=== PATIENT | female | born 1960 | race Caucasian/White ===

== ENCOUNTER 2018-06-23 07:20 | Day surgery (SDC) | payer OTHER | END 2018-06-23 11:55 | disposition home or self-care (01) | LOC: AMB-ENDOS 07:20 | DX: R19.8 Other specified symptoms and signs involving the digestive system and abdomen (principal) ==

== ENCOUNTER 2018-10-20 09:30 | Day surgery (SDC) | payer OTHER | END 2018-10-20 15:20 | disposition home or self-care (01) | LOC: AMB-ENDOS 09:30 | DX: D13.1 Benign neoplasm of stomach (principal) ==

== ENCOUNTER 2020-06-05 07:00 | Day surgery (SDC) | payer OTHER ==
[~2020-06-05 07:00] MED LIST: SINGULAIR10 MG PO; SPIRIV IH; SYMBICORT 16010.2 GM IH; SYNTHROID88 MCG PO
[2020-06-05] MEDS ORDERED: PERCOCET 5-3251 EACH PO (11:44)
[2020-06-05] MEDS ORDERED: NEURONTIN300 MG PO (11:44)
[2020-06-05] MEDS ORDERED: DERMOPLAST PAIN78 GM TOP (11:47)
== END 2020-06-05 15:45 | disposition home or self-care (01) ==
LOC: CIR.AMB 07:00
PROVIDERS: ATTEND Surgery
DX: L29.0 Pruritus ani (principal); Z20.822 Contact with and (suspected) exposure to COVID-19